=== PATIENT | male | born 1980 | race Hispanic/Latino ===

== ENCOUNTER 2017-10-06 16:21 | Emergency (ER) | payer OTHER ==
[2017-10-06 16:42] VITALS: TEMP 98.4
[2017-10-06] MEDS ORDERED: Amoxicillin-Clav 875-125 mg Tab PO STA (18:29)
[2017-10-06 18:37] VITALS: BP 142/96; PULSE 69; RESP 18; O2SAT 100
--- NOTE | 2017-10-06 18:58 | ED PDOC ---
Arrival/HPI - General Chief Complaint: Lower Extremity Problem/Injury Time Seen by Provider: 10/06/17 18:29 Historian: Patient - History of Present Illness Narrative History of Present Illness (Text): 10/06/17 18:25 A 36 year old male, with no significant past medical history, presents to the emergency department complaining of injury to right calf and swelling to throat. Patient reports while playing basketball, patient was squatting to jump and felt sudden pop to right calf. States having inability to put full weight onto right leg due to pain but is able to ambulate. Patient is concerned of blood clots. Notes swelling to throat for past year which waxes and wanes, and was told in the past to have tonsillitis. Denies any fever, chest pain, shortness of breath, difficulty swallowing, nausea, vomiting, diarrhea, any other trauma/injuries, or any other complaints at this time. No PMD Past Medical History - Provider Review Nursing Documentation Reviewed: Yes - Psychiatric Hx Psychophysiologic Disorder: No Hx Substance Use: No Family/Social History - Physician Review Nursing Documentation Reviewed: Yes Family/Social History: No Known Family HX Smoking Status: Never Smoked Hx Alcohol Use: No Hx Substance Use: No Allergies/Home Meds Allergies/Adverse Reactions: Allergies No Known Allergies Allergy (Verified 10/06/17 16:23) Review of Systems - Review of Systems Constitutional: absent: Fevers, Other (no traumas/injuries) ENT: absent: Other (no difficult swallowing) Respiratory: absent: SOB Cardiovascular: absent: Chest Pain Gastrointestinal: absent: Diarrhea, Nausea, Vomiting Physical Exam Vital Signs Reviewed: Yes Vital Signs Temp Pulse Resp BP Pulse Ox 10/06/17 18:36 69 18 142/96 H 100 10/06/17 16:23 98.4 F 75 16 149/106 H 98 Temperature: Afebrile Blood Pressure: Normal Pulse: Regular Respiratory Rate: Normal Appearance: Positive for: Well-Appearing Pain Distress: None Mental Status: Positive for: Alert and Oriented X 3 - Systems Exam Lower Extremity: Present: Other (ecchymosis to lateral medial region of calf). No: Normal ROM (limited ROM) Neurological: Present: GCS=15, CN II-XII Intact, Speech Normal Skin: Present: Warm, Dry, Normal Color. No: Rashes Psychiatric: Present: Alert, Oriented x 3, Normal Insight, Normal Concentration Medical Decision Making ED Course and Treatment: 10/06/17 18:29 Impression: 36 year old male with injury to right calf and swelling in throat. Physical exam shows ecchymosis around lateral and medial area of right calf and ankle; limited ROM due to pain; lemon test negative; Achilles tendon intact. Plan: -- Amoxicillin -- Toradol -- Reassess and disposition Progress Notes: Augmentin PO stat Toradol 30 mg IM Right ankle splint and RAPHAEL wrap; pt declined crutches Advised to f/u with orthopedist for PT or further evaluation VSS on DC - Medication Orders Current Medication Orders: Discontinued Medications Amoxicillin/Clavulanate Potassium (Augmentin 875 Mg-125 Mg Tab) 1 tab PO STAT STA PRN Reason: Protocol Stop: 10/06/17 18:30 Last Admin: 10/06/17 18:58 Dose: 1 tab Ketorolac Tromethamine (Toradol) 30 mg IM STAT STA Stop: 10/06/17 18:38 Last Admin: 10/06/17 19:01 Dose: 30 mg MAR Pain Assessment Document 10/06/17 19:01 OCS (Rec: 10/06/17 19:01 [facility] [id number]) Pain Reassessment Is this a pain reassessment? Yes Sleep Is patient sleeping during reassessment? No Presence of Pain Presence of Pain Yes Pain Scale Used Pain Scale Used Numeric Location Left, Right or Bilateral Left Pain Location Body Site Ankle Description Description Constant Intensity of Pain at present 10 Aggravating Factors ADL's IM Administration Charges Document 10/06/17 19:01 OCS (Rec: 10/06/17 19:01 [facility] [id number]) Injection Site MAR Injection Site Left Deltoid Charges for Administration # of IM Administrations 1 - Scribe Statement The provider has reviewed the documentation as recorded by the Nadiya Hartman Provider Scribe Attestation: All medical record entries made by the Scribe were at my direction and personally dictated by me. I have reviewed the chart and agree that the record accurately reflects my personal performance of the history, physical exam, medical decision making, and the department course for this patient. I have also personally directed, reviewed, and agree with the discharge instructions and disposition. Disposition/Present on Arrival - Present on Arrival Any Indicators Present on Arrival: Yes History of DVT/PE: No History of Uncontrolled Diabetes: No Urinary Catheter: No History of Decub. Ulcer: No History Surgical Site Infection Following: None - Disposition Have Diagnosis and Disposition been Completed?: Yes Diagnosis: Achilles tendinitis, Tonsillitis, chronic, Gastrocnemius muscle tear Disposition: HOME/ ROUTINE Disposition Time: 19:23 Patient Plan: Discharge Condition: GOOD Discharge Instructions (ExitCare): Achilles Tendinitis (ED) Additional Instructions: Frank thank you for letting us take care of you today. Your provider was LISA Granados You were treated for right Achilles tendon tear and tonsillitis. The emergency medical care you received today was directed at your acute symptoms. If you were prescribed any medication, please fill it and take as directed. It may take several days for your symptoms to resolve. Return to the Emergency Department if your symptoms worsen, do not improve, or if you have any other problems. Please follow up with the recommended orthopedist. Please contact your doctor or call one of the physicians/clinics you have been referred to that are listed on the Patient Visit Information form that is included in your discharge packet. Bring any paperwork you were given at discharge with you along with any medications you are taking to your follow up visit. Our treatment cannot replace ongoing medical care by a primary care provider (PCP) outside of the emergency department. Thank you for allowing the [facility] team to be part of your care today. Prescriptions: Amoxicillin/Clavulanate [Augmentin 875 MG-125 MG] 1 tab PO Q12 7 Days #14 tab Ibuprofen [Motrin Tab] 600 mg PO Q6 PRN 5 Days #20 tab PRN Reason: pain/fever Referrals: PCP,NO [Primary Care Provider] - Follow up with primary Devaughn Lemon DO [Staff Provider] - Follow up with primary Forms: [employer] (Ukrainian)
== END 2017-10-06 19:42 | disposition home or self-care (01) ==
LOC: ED 16:21
DX: M76.61 Achilles tendinitis, right leg (principal); J35.01 Chronic tonsillitis; S86.911A Strain of unspecified muscle(s) and tendon(s) at lower leg level, right leg, initial encounter; X50.0XXA Overexertion from strenuous movement or load, initial encounter; Y93.67 Activity, basketball; Y92.39 Other specified sports and athletic area as the place of occurrence of the external cause
CPT/HCPCS: 29540; 96372; 99284; J1885

== ENCOUNTER 2018-01-11 10:43 | Emergency (ER) | payer OTHER ==
[2018-01-11 11:03] VITALS: TEMP 98.8; O2SAT 98
--- NOTE | 2018-01-11 11:18 | ED PDOC ---
Arrival/HPI - General Chief Complaint: Back Pain Time Seen by Provider: 01/11/18 11:07 Historian: Patient - History of Present Illness Narrative History of Present Illness (Text): 01/11/18 11:12 37 year old male, with no significant past medical history, presents to the ED complaining of bilateral flank discomfort since 4 days. Patient states worsening pain yesterday, rated 9/10 in severity, prompting him to present to the ED for medical evaluation. Patient informs no improvement to symptoms after taking ibuprofen and states symptoms are different from previous episodes of back pain. Additionally, patient states subjective fever yesterday associated with mild abdominal "bloating". As per patient, symptoms currently improved with pain rated 4/10 in severity. Patient currently denies any trauma, fever, nausea, vomiting, diarrhea, abdominal pain, chest pain, shortness of breath or any other complaints. PMD: NO PMD Time/Duration: < week (4 days) Symptom Onset: Gradual Symptom Course: Unchanged Quality: Aching Activities at Onset: Light Context: Home Past Medical History - Provider Review Nursing Documentation Reviewed: Yes - Cardiac Hx Cardiac Disorders: No - Pulmonary Hx Respiratory Disorders: No - Neurological Hx Neurological Disorder: No - HEENT Hx HEENT Disorder: Yes Other/Comment: TONSILITIS - Renal Hx Renal Disorder: No - Endocrine/Metabolic Hx Endocrine Disorders: No - Hematological/Oncological Hx Blood Disorders: No - Integumentary Hx Dermatological Disorder: No - Musculoskeletal/Rheumatological Hx Musculoskeletal Disorders: No - Gastrointestinal Hx Gastrointestinal Disorders: No - Genitourinary/Gynecological Hx Genitourinary Disorders: Yes - Psychiatric Hx Psychophysiologic Disorder: No Hx Substance Use: No - Surgical History Other/Comment: BLADDER SURGERY Family/Social History - Physician Review Nursing Documentation Reviewed: Yes Family/Social History: No Known Family HX Smoking Status: Never Smoked Hx Alcohol Use: No Hx Substance Use: No Allergies/Home Meds Allergies/Adverse Reactions: Allergies No Known Allergies Allergy (Verified 01/11/18 10:58) Review of Systems - Physician Review All systems were reviewed & negative as marked: Yes - Review of Systems Constitutional: absent: Fevers Respiratory: absent: SOB Cardiovascular: absent: Chest Pain Gastrointestinal: Other (abdominal bloating). absent: Abdominal Pain, Diarrhea , Nausea, Vomiting Musculoskeletal: Back Pain (bilateral flank pain) Physical Exam Vital Signs Reviewed: Yes Vital Signs Temp Pulse Resp BP Pulse Ox 01/11/18 12:35 89 18 142/85 98 01/11/18 10:59 98.8 F 98 H 16 144/98 H 98 Temperature: Afebrile Blood Pressure: Normal Pulse: Regular Respiratory Rate: Normal Appearance: Positive for: Well-Appearing, Non-Toxic, Comfortable Pain Distress: None Mental Status: Positive for: Alert and Oriented X 3 - Systems Exam Head: Present: Atraumatic, Normocephalic Pupils: Present: PERRL Extroacular Muscles: Present: EOMI Conjunctiva: Present: Normal Respiratory/Chest: Present: Clear to Auscultation, Good Air Exchange. No: Respiratory Distress, Accessory Muscle Use Cardiovascular: Present: Regular Rate and Rhythm, Normal S1, S2. No: Murmurs Abdomen: No: Tenderness, Distention, Peritoneal Signs, Rebound, Guarding Back: Present: Normal Inspection. No: CVA Tenderness, Midline Tenderness, Paraspinal Tenderness Upper Extremity: Present: Normal Inspection, Normal ROM, Neurovascularly Intact. No: Cyanosis, Edema Lower Extremity: Present: Normal Inspection, Normal ROM, Neurovascularly Intact. No: Edema, Swelling Neurological: Present: GCS=15, CN II-XII Intact, Speech Normal Skin: Present: Warm, Dry, Normal Color. No: Rashes Psychiatric: Present: Alert, Oriented x 3, Normal Insight, Normal Concentration Medical Decision Making ED Course and Treatment: 01/11/18 11:11 Impression: 37 year old male presents to the emergency department for bilateral flank discomfort. Plan: -- Toradol -- X-ray of Abdomen -- Urinalysis -- Reassess and disposition Prior Visits: Notes and results from previous visits were reviewed. Progress Notes: 01/11/18 13:13 Upon reassessment, patient informs improved symptoms with no new complaints. Patient will be discharged home with treatment for constipation and UTI. Patient understands and agrees with plan. - Lab Interpretations Lab Results: Lab Results 01/11/18 11:24: Urine Color Yellow, Urine Appearance Turbid, Urine pH 6.5, Ur Specific [place] 1.020, Urine Protein 30 H, Urine Glucose (UA) Negative, Urine Ketones Negative, Urine Blood Moderate H, Urine Nitrate Negative, Urine Bilirubin Negative, Urine Urobilinogen 0.2, Ur Leukocyte Esterase Small H, Urine RBC 5 - 10, Urine WBC 25 - 30, Urine Bacteria Trace - RAD Interpretation Narrative RAD Interpretations (Text): Date of service: 01/11/2018 HISTORY: pain COMPARISON: No prior. FINDINGS: BOWEL: Normal. No obstruction. No free air. BONES: Normal. OTHER FINDINGS: None. IMPRESSION: No active disease. Radiology Orders: 01/11/18 11:09 ABD 2 VIEWS (FLAT/UP OR DECUB) [RAD] Stat Camp Nurse: Radiologist - Medication Orders Current Medication Orders: Discontinued Medications Ketorolac Tromethamine (Toradol) 60 mg IM STAT STA Stop: 01/11/18 11:12 Last Admin: 01/11/18 11:27 Dose: 60 mg MAR Pain Assessment Document 01/11/18 11:27 [facility] (Rec: 01/11/18 11:31 [facility] [id number]) Pain Reassessment Is this a pain reassessment? Yes Sleep Is patient sleeping during reassessment? No Pain Scale Used Pain Scale Used Numeric Location Left, Right or Bilateral Bilateral Upper or Lower Lower Pain Location Body Site Back Description Description Sharp Intensity of Pain at present 5 IM Administration Charges Document 01/11/18 11:27 [facility] (Rec: 01/11/18 11:31 [facility] [id number]) Injection Site MAR Injection Site Left Deltoid Charges for Administration # of IM Administrations 1 - Scribe Statement The provider has reviewed the documentation as recorded by the Scribe Sarthak Lewis. All medical record entries made by the Scribe were at my direction and personally dictated by me. I have reviewed the chart and agree that the record accurately reflects my personal performance of the history, physical exam, medical decision making, and the department course for this patient. I have also personally directed, reviewed, and agree with the discharge instructions and disposition. Disposition/Present on Arrival - Present on Arrival Any Indicators Present on Arrival: No History of DVT/PE: No History of Uncontrolled Diabetes: No Urinary Catheter: No History of Decub. Ulcer: No History Surgical Site Infection Following: None - Disposition Have Diagnosis and Disposition been Completed?: Yes Diagnosis: UTI (urinary tract infection), Constipation Disposition: HOME/ ROUTINE Disposition Time: 13:20 Condition: GOOD Discharge Instructions (ExitCare): Urinary Tract Infection, Adult (DC) Additional Instructions: LAVERNE HALE, thank you for letting us take care of you today. Your provider was Pauline Alvarado MD and you were treated for STOMACH PROBLEM. The emergency medical care you received today was directed at your acute symptoms. If you were prescribed any medication, please fill it and take as directed. It may take several days for your symptoms to resolve. Return to the Emergency Department if your symptoms worsen, do not improve, or if you have any other problems. Please contact your doctor or call one of the physicians/clinics you have been referred to that are listed on the Patient Visit Information form that is included in your discharge packet. Bring any paperwork you were given at discharge with you along with any medications you are taking to your follow up visit. Our treatment cannot replace ongoing medical care by a primary care provider outside of the emergency department. Thank you for allowing the [facility] team to be part of your care today. If you had an X-Ray or CT scan: A Radiologist will review the ED reading if any change in treatment is needed we will contact you. If you had a blood, urine, or wound culture: It will take several days for the results, if any change in treatment is needed we will contact you. If you had an STI test: It will take 48 hours for the results. Please call after 1 week if you have not heard back. Prescriptions: Nitrofurantoin Macrocrystals [Macrobid] 100 mg PO BID #14 cap Forms: [employer] (Czech)
[2018-01-11 11:31] LABS: PH,URINE 6.5 (4.7-8.0); URINE BILIRUBIN NEGATIVE (NEGATIVE); URINE BLOOD MODERATE (NEGATIVE); URINE GLUCOSE (UA) NEGATIVE (NEGATIVE); URINE LEUKOCYTE ESTERASE SMALL Leu/uL (NEGATIVE); URINE PROTEIN 30 mg/dL (<30 mg/dL); URINE UROBILINOGEN 0.2 E.U./dL (<1 E.U./dL)
[2018-01-11 11:32] LABS: URINE APPEARANCE TURBID (CLEAR); URINE COLOR YELLOW (YELLOW)
[2018-01-11 11:38] LABS: URINE BACTERIA TRACE (NEG); URINE WBC 25 - 30 /hpf (0-6)
[2018-01-11 12:35] VITALS: BP 142/85; PULSE 89; RESP 18
--- NOTE | 2018-01-11 13:23 | RAD ---
Date of service: 01/11/2018 HISTORY: pain COMPARISON: No prior. FINDINGS: BOWEL: Normal. No obstruction. No free air. BONES: Normal. OTHER FINDINGS: None. IMPRESSION: No active disease.
== END 2018-01-11 13:20 | disposition home or self-care (01) ==
LOC: ED 10:43
DX: N39.0 Urinary tract infection, site not specified (principal); K59.00 Constipation, unspecified
CPT/HCPCS: 74019; 81001; 87086; 96372; 99282; J1885